=== PATIENT | female | born 1965 | race Caucasian/White ===

== ENCOUNTER 2016-11-06 17:33 | Emergency (ER) | payer MEDICAID, OTHER ==
[2016-11-06 18:20] VITALS: BP 157/99
--- NOTE | 2016-11-06 19:08 | EDM.PDOC ---
ED HPI GENERAL MEDICAL PROBLEM - General Chief Complaint: General Stated Complaint: feeling sick Time Seen by Provider: 11/06/16 19:03 Source of Information: Reports: Patient History Limitations: Reports: No Limitations - History of Present Illness INITIAL COMMENTS - FREE TEXT/NARRATIVE: fell onto low back and been having problem walking about especially it has exac ' her fibromyalgia. was on dilaudid in [place] and just got here week ago and pending medicaid. explained to Pt re' [place] law on pain meds. Pt understood. Generalized Pain Score (Numeric/FACES): 6 - Related Data Allergies Allergy/AdvReac Type Severity Reaction Status Date / Time acetaminophen Allergy Anxiety Verified 11/06/16 18:16 [From Darvocet-N] adhesive tape Allergy Rash Verified 11/06/16 18:16 latex Allergy Rash Verified 11/06/16 18:15 meperidine [From Demerol] Allergy Rash Verified 11/06/16 18:16 naproxen Allergy Numbness Verified 11/06/16 18:17 propoxyphene Allergy Anxiety Verified 11/06/16 18:16 [From Darvocet-N] tramadol Allergy Vomiting Verified 11/06/16 18:17 Home Meds: Home Meds . 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, Other (See Below) Other OB/BYN History: and hysterectomy Musculoskeletal History: Reports: Back Pain, Chronic, Fibromyalgia, Neck Pain, Chronic Neurological History: Reports: None Psychiatric History: Reports: None Endocrine/Metabolic History: Reports: None Hematologic History: Reports: None Immunologic History: Reports: None Oncologic (Cancer) History: Reports: None Dermatologic History: Reports: Eczema, Other (See Below) Other Dermatologic History: sensitive to latex - Infectious Disease History Infectious Disease History: Reports: Hepatitis C - Past Surgical History Head Surgeries/Procedures: Reports: None Social & Family History - Family History Family Medical History: Noncontributory - Tobacco Use Smoking Status *Q: Current Every Day Smoker Years of Tobacco use: 30 Packs/Tins Daily: 0.5 Used Tobacco, but Quit: No Second Hand Smoke Exposure: No - Caffeine Use Caffeine Use: Reports: Soda - Recreational Drug Use Recreational Drug Use: No ED ROS GENERAL - Review of Systems Review Of Systems: ROS reveals no pertinent complaints other than HPI. ED EXAM, GENERAL - Physical Exam Exam: See Below Exam Limited By: No Limitations General Appearance: Alert, WD/WN, Mild Distress, Other (low back pain, tearful) Eye Exam: Bilateral Eye: PERRL (pupils ER @ 4mm) Ears: Hearing Grossly Normal Throat/Mouth: Normal Voice, No Airway Compromise Head: Atraumatic Neck: Non-Tender, Full Range of Motion Respiratory/Chest: No Respiratory Distress Cardiovascular: Regular Rate, Rhythm GI/Abdominal: Soft, Non-Tender Back Exam: Muscle Spasm, Paraspinal Tenderness, Other (L1-S1 region with mild radiculitis, gait limited to pain, no gross ecchymosis) Extremities: Normal Inspection Neurological: Alert, Oriented, Normal Cognition, Normal Reflexes, No Motor/ Sensory Deficits Psychiatric: Tearful Skin Exam: Warm, Dry Lymphatic: No Adenopathy Course - Vital Signs Last Recorded V/S: Last Vital Signs Temp 36.4 C 11/06/16 18:18 Pulse 104 H 11/06/16 18:18 Resp 20 11/06/16 18:18 BP 157/99 H 11/06/16 18:19 Pulse Ox 100 11/06/16 18:18 - Orders/Labs/Meds Meds: Medications Discontinued Medications Generic Name Dose Route Start Last Admin Trade Name Alvaradoq PRN Reason Stop Dose Admin Hydromorphone HCl 1 mg 11/06/16 19:41 11/06/16 19:51 Dilaudid IM 11/06/16 19:42 1 mg ONETIME ONE Administration Promethazine HCl 25 mg 11/06/16 19:41 11/06/16 19:51 Phenergan IM 11/06/16 19:42 25 mg ONETIME ONE Administration - Re-Assessments/Exams Free Text/Narrative Re-Assessment/Exam: 11/06/16 19:46 x-rays discussed with Pt. Departure - Departure Time of Disposition: 20:05 Disposition: Home, Self-Care 01 Condition: Good Clinical Impression: Lumbar radicular syndrome, Fibromyalgia syndrome Lumbar contusion Qualifiers: Encounter type: initial encounter Qualified Code(s): S30.0XXA - Contusion of lower back and pelvis, initial encounter - Discharge Information Instructions: Back Pain, Adult, [id number] Forms: ED Department Discharge Additional Instructions: 1) rest and avoid bending lifting straining 2) try heat or ice to sore areas 3) follow up at clinic rx given; flexeril 10mg tid prn x 12
[2016-11-06] MEDS ORDERED: HYDROmorphone 1 MG/ML Syringe IM ONE (19:41)
[2016-11-06] MEDS ORDERED: Promethazine 25 MG/ML SDV IM ONE (19:41)
== END 2016-11-06 20:10 | disposition home or self-care (01) ==
LOC: DL.ED 17:33
DX: S30.0XXA Contusion of lower back and pelvis, initial encounter (principal); M54.16 Radiculopathy, lumbar region; M79.7 Fibromyalgia; F17.210 Nicotine dependence, cigarettes, uncomplicated; Z90.710 Acquired absence of both cervix and uterus; Z91.09 Other allergy status, other than to drugs and biological substances; Z91.040 Latex allergy status; Z88.5 Allergy status to narcotic agent; Z88.8 Allergy status to other drugs, medicaments and biological substances; W19.XXXA Unspecified fall, initial encounter
CPT/HCPCS: 72100; 96372; 99283; J1170; J2550; 99284

== ENCOUNTER 2016-11-11 17:46 | Emergency (ER) | payer MEDICAID, OTHER ==
--- NOTE | 2016-11-11 19:22 | EDM.PDOC ---
ED HPI GENERAL MEDICAL PROBLEM - General Chief Complaint: ENT Problem Stated Complaint: TOOTH PAIN NO PHONE Time Seen by Provider: 11/11/16 19:24 Source of Information: Reports: Patient History Limitations: Reports: No Limitations - History of Present Illness INITIAL COMMENTS - FREE TEXT/NARRATIVE: C/o severe tooth pain on upper and lower right posterior molars starting Wednesday worse today, Dentist appointment on Wednesday. Alternating tylenol and ibuprofen with anbesol without relief. 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, Other (See Below) Other OB/BYN History: and hysterectomy Musculoskeletal History: Reports: Back Pain, Chronic, Fibromyalgia, Neck Pain, Chronic Neurological History: Reports: None Psychiatric History: Reports: None Endocrine/Metabolic History: Reports: None Hematologic History: Reports: None Immunologic History: Reports: None Oncologic (Cancer) History: Reports: None Dermatologic History: Reports: Eczema, Other (See Below) Other Dermatologic History: sensitive to latex - Infectious Disease History Infectious Disease History: Reports: Hepatitis C - Past Surgical History Head Surgeries/Procedures: Reports: None Social & Family History - Family History Family Medical History: Noncontributory - Tobacco Use Smoking Status *Q: Current Every Day Smoker Years of Tobacco use: 30 Packs/Tins Daily: 0.5 Used Tobacco, but Quit: No Second Hand Smoke Exposure: No - Caffeine Use Caffeine Use: Reports: Soda - Recreational Drug Use Recreational Drug Use: No ED ROS ENT - Review of Systems Review Of Systems: See Below Constitutional: Denies: Fever, Chills HEENT: Reports: Dental Pain Respiratory: Reports: Shortness of Breath Cardiovascular: Reports: No Symptoms ED EXAM, ENT - Physical Exam Exam: See Below Exam Limited By: No Limitations General Appearance: Alert, Moderate Distress, Thin Eye Exam: Bilateral Eye: EOMI Ears: Normal External Exam Nose: Normal Inspection Mouth/Throat: Dental Abcess (Posterior right upper and lower molar, extensive old decay, minimal gum swelling, no lymphadnopathy), Dental Pain, Dental Tenderness Head: Atraumatic, Normocephalic Respiratory/Chest: No Respiratory Distress, Lungs Clear Cardiovascular: Normal Peripheral Pulses, Regular Rate, Rhythm Neurological: Alert Psychiatric: Anxious, Tearful Skin: Warm, Dry, Intact, Normal Color Course - Vital Signs Last Recorded V/S: Last Vital Signs Temp 98.2 F 11/11/16 18:14 Pulse 79 11/11/16 18:14 Resp 16 11/11/16 18:14 BP 187/97 H 11/11/16 18:14 Pulse Ox 100 11/11/16 18:14 - Re-Assessments/Exams Free Text/Narrative Re-Assessment/Exam: 11/11/16 2235 Patient called to ED inquiring if we would fill her RX as unable to get to pharmacy before it closed. Patient discharged at 1935 and pharmacy open until 1999. Patient informed she would could fill Rx in am. Departure - Departure Time of Disposition: 19:35 Disposition: Home, Self-Care 01 Condition: Good Clinical Impression: Pain due to dental caries - Discharge Information Instructions: Dental Abscess, [id number] Forms: ED Department Discharge Additional Instructions: amoxicillin 875mg one twice daily for one week #14 hydrocodone 10/325 one now and one in 6 hours at bed time #2 chew opposite side room temp liquids follow up with dentist
== END 2016-11-11 19:43 | disposition home or self-care (01) ==
LOC: DL.ED 17:46
CPT/HCPCS: 99282; 99283

== ENCOUNTER 2016-11-26 19:06 | Emergency (ER) | payer MEDICAID, OTHER ==
[2016-11-26 20:00] VITALS: BP 131/88
== END 2016-11-26 21:14 | disposition left against medical advice (07) ==
LOC: DL.ED 19:06
DX: Z53.21 Procedure and treatment not carried out due to patient leaving prior to being seen by health care provider (principal)

== ENCOUNTER 2016-12-06 11:28 | Emergency (ER) | payer MEDICAID, OTHER ==
[2016-12-06 11:45] VITALS: BP 135/93
[2016-12-06] MEDS ORDERED: Albuterol/Ipratropium 3.0-0.5 MG/3 ML Neb Soln NEB ONE (12:17)
--- NOTE | 2016-12-06 12:20 | EDM.PDOC ---
ED HPI GENERAL MEDICAL PROBLEM - General Chief Complaint: Respiratory Problem Stated Complaint: COLD Time Seen by Provider: 12/06/16 12:15 Source of Information: Reports: Patient History Limitations: Reports: No Limitations - History of Present Illness INITIAL COMMENTS - FREE TEXT/NARRATIVE: 51 yo white female c/o right side chest congestion X 3 months. Patient smoke cigs 1.5 packs / day Onset Date: 08/24/16 Onset Time: 12:00 Duration: Week(s): Location: Reports: Chest Severity: Moderate Improves with: Reports: None Worsens with: Reports: None Associated Symptoms: Reports: Cough Right Thoracic Pain Score (Numeric/FACES): 1 - Related Data Allergies Allergy/AdvReac Type Severity Reaction Status Date / Time acetaminophen Allergy Anxiety Verified 12/06/16 11:40 [From Darvocet-N] adhesive tape Allergy Rash Verified 12/06/16 11:40 latex Allergy Rash Verified 12/06/16 11:40 meperidine [From Demerol] Allergy Rash Verified 12/06/16 11:40 naproxen Allergy Numbness Verified 12/06/16 11:40 propoxyphene Allergy Anxiety Verified 12/06/16 11:40 [From Darvocet-N] tramadol Allergy Vomiting Verified 12/06/16 11:40 Home Meds: Home Meds . 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, Other (See Below) Other OB/BYN History: and hysterectomy Musculoskeletal History: Reports: Back Pain, Chronic, Fibromyalgia, Neck Pain, Chronic Neurological History: Reports: None Psychiatric History: Reports: None Endocrine/Metabolic History: Reports: None Hematologic History: Reports: None Immunologic History: Reports: None Oncologic (Cancer) History: Reports: None Dermatologic History: Reports: Eczema, Other (See Below) Other Dermatologic History: sensitive to latex - Infectious Disease History Infectious Disease History: Reports: Hepatitis C - Past Surgical History Head Surgeries/Procedures: Reports: None Social & Family History - Family History Family Medical History: Noncontributory - Tobacco Use Smoking Status *Q: Current Every Day Smoker Years of Tobacco use: 41 Packs/Tins Daily: 1 Used Tobacco, but Quit: No Second Hand Smoke Exposure: Yes - Caffeine Use Caffeine Use: Reports: Soda - Recreational Drug Use Recreational Drug Use: No ED ROS GENERAL - Review of Systems Review Of Systems: See Below Constitutional: Reports: No Symptoms HEENT: Reports: No Symptoms Respiratory: Reports: Cough Cardiovascular: Reports: No Symptoms Endocrine: Reports: No Symptoms GI/Abdominal: Reports: No Symptoms : Reports: No Symptoms Musculoskeletal: Reports: No Symptoms Skin: Reports: No Symptoms Neurological: Reports: No Symptoms Psychiatric: Reports: No Symptoms Hematologic/Lymphatic: Reports: No Symptoms Immunologic: Reports: No Symptoms ED EXAM, GENERAL - Physical Exam Exam: See Below Exam Limited By: No Limitations General Appearance: Alert, WD/WN, No Apparent Distress Eye Exam: Bilateral Eye: PERRL Ears: Normal External Exam Ear Exam: Bilateral Ear: Auricle Normal Nose: Normal Inspection Throat/Mouth: Normal Inspection Head: Atraumatic Neck: Normal Inspection Respiratory/Chest: No Respiratory Distress, Lungs Clear, No Accessory Muscle Use Cardiovascular: Normal Peripheral Pulses, Regular Rate, Rhythm GI/Abdominal: Normal Bowel Sounds Back Exam: Normal Inspection Extremities: Normal Inspection Neurological: Alert, Oriented, CN II-XII Intact Psychiatric: Normal Affect Skin Exam: Warm, Intact Lymphatic: No Adenopathy Course - Vital Signs Last Recorded V/S: Last Vital Signs Temp 37.3 C 12/06/16 11:42 Pulse 74 12/06/16 12:17 Resp 16 12/06/16 11:42 BP 135/93 H 12/06/16 11:42 Pulse Ox 92 L 12/06/16 12:17 - Orders/Labs/Meds Orders: Active Orders 24 hr Category Date Time Status RT Aerosol Therapy [RC] ASDIRECTED Care 12/06/16 12:17 Active Chest 2V [CR] Urgent Exams 12/06/16 12:16 Ordered Meds: Medications Discontinued Medications Generic Name Dose Route Start Last Admin Trade Name Freq PRN Reason Stop Dose Admin Albuterol/Ipratropium 3 ml 12/06/16 12:17 12/06/16 12:22 Duoneb 3.0-0.5 Mg/3 Ml NEB 12/06/16 12:18 3 ml ONETIME ONE Administration - Radiology Interpretation Free Text/Narrative:: Chest X-ray Negative for pneumonia Departure - Departure Time of Disposition: 13:06 Disposition: Home, Self-Care 01 Condition: Fair Clinical Impression: Bronchitis due to fumes and vapors, Tobacco abuse - Discharge Information Instructions: Smoking Cessation, Tips for Success, [id number] Forms: ED Department Discharge Additional Instructions: Stop Smoking Increase intake of Fluids ( Juice /Water) Take Medications as prescribed F/U w/ PCP - My Orders Last 24 Hours: My Active Orders 12/06/16 12:16 Chest 2V [CR] Urgent 12/06/16 12:17 RT Aerosol Therapy [RC] ASDIRECTED - Assessment/Plan Last 24 Hours: My Active Orders 12/06/16 12:16 Chest 2V [CR] Urgent 12/06/16 12:17 RT Aerosol Therapy [RC] ASDIRECTED
== END 2016-12-06 13:18 | disposition home or self-care (01) ==
LOC: DL.ED 11:28
DX: J68.0 Bronchitis and pneumonitis due to chemicals, gases, fumes and vapors (principal); F17.210 Nicotine dependence, cigarettes, uncomplicated; Z90.710 Acquired absence of both cervix and uterus; Z88.6 Allergy status to analgesic agent; Z88.8 Allergy status to other drugs, medicaments and biological substances; Z91.040 Latex allergy status
CPT/HCPCS: 71020; 94640; 99284

== ENCOUNTER 2017-04-03 18:49 | Emergency (ER) | payer MEDICAID, OTHER ==
[2017-04-03 19:22] VITALS: BP 152/92
--- NOTE | 2017-04-03 19:50 | EDM.PDOC ---
ED HPI GENERAL MEDICAL PROBLEM - General Chief Complaint: Trauma Stated Complaint: LEFT SIDE HIP/KNEE INJURY, [id number] Time Seen by Provider: 04/03/17 19:30 Source of Information: Reports: Patient History Limitations: Reports: No Limitations - History of Present Illness INITIAL COMMENTS - FREE TEXT/NARRATIVE: Reports falling in parking lot when slipped on icy patch fell on left side and hit curb with left knee. 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: Other (see below) Other Treatments EGG BUYER: none Left Elbow Pain Score (Numeric/FACES): 6 - Related Data Allergies Allergy/AdvReac Type Severity Reaction Status Date / Time adhesive tape Allergy Rash Verified 04/03/17 19:23 latex Allergy Rash Verified 04/03/17 19:23 meperidine [From Demerol] Allergy Rash Verified 04/03/17 19:23 naproxen Allergy Numbness Verified 04/03/17 19:23 propoxyphene Allergy Anxiety Verified 04/03/17 19:23 [From Darvocet-N] tramadol Allergy Vomiting Verified 04/03/17 19:23 acetaminophen AdvReac Anxiety Verified 04/03/17 19:24 [From Darvocet-N] secobarbital [From Seconal] AdvReac Excitabilit Verified 04/03/17 19:24 y Home Meds: Home Meds Diclofenac Sodium [Voltaren] 04/03/17 [History] Past Medical History HEENT History: Reports: Other (See Below) Other HEENT History: dental caries Cardiovascular History: Reports: None Respiratory History: Reports: COPD Gastrointestinal History: Reports: Other (See Below) Other Gastrointestinal History: pt has emesis constantly,hernia Genitourinary History: Reports: Other (See Below) Other Genitourinary History: one kidney 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, Other (See Below) Other OB/BYN History: and hysterectomy Musculoskeletal History: Reports: Back Pain, Chronic, Fibromyalgia, Neck Pain, Chronic, Other (See Below) Other Musculoskeletal History: scoliosis of neck causing chronic hip pain Neurological History: Reports: None Psychiatric History: Reports: None Endocrine/Metabolic History: Reports: None Hematologic History: Reports: None Immunologic History: Reports: None Oncologic (Cancer) History: Reports: None Dermatologic History: Reports: Eczema, Other (See Below) Other Dermatologic History: sensitive to latex - Infectious Disease History Infectious Disease History: Reports: Hepatitis C - Past Surgical History Head Surgeries/Procedures: Reports: None Social & Family History - Family History Family Medical History: Noncontributory - Tobacco Use Smoking Status *Q: Current Every Day Smoker Years of Tobacco use: 42 Packs/Tins Daily: 1 Used Tobacco, but Quit: No Second Hand Smoke Exposure: Yes - Caffeine Use Caffeine Use: Reports: Soda - Recreational Drug Use Recreational Drug Use: No Review of Systems - Review of Systems Review Of Systems: See Below Constitutional: Reports: No Symptoms Eyes: Reports: No Symptoms Ears: Reports: No Symptoms Nose: Reports: No Symptoms Mouth/Throat: Reports: No Symptoms Respiratory: Reports: No Symptoms Cardiovascular: Reports: No Symptoms GI/Abdominal: Reports: No Symptoms Musculoskeletal: Reports: Arm Pain (left wrist), Leg Pain (left). Denies: Neck Pain, Shoulder Pain, Back Pain Skin: Reports: No Symptoms Neurological: Reports: No Symptoms Psychiatric: Reports: No Symptoms ED EXAM, GENERAL - Physical Exam Exam: See Below Exam Limited By: No Limitations General Appearance: Alert, Mild Distress ( moves slower but easily when not observing staff present, movements and complaints more dramatic with staff) Eye Exam: Bilateral Eye: EOMI, PERRL Ears: Normal External Exam, Normal TMs Nose: Normal Inspection Throat/Mouth: Normal Inspection Head: Atraumatic, Normocephalic Neck: Normal Inspection Respiratory/Chest: No Respiratory Distress, Lungs Clear Cardiovascular: Normal Peripheral Pulses, Regular Rate, Rhythm GI/Abdominal: Normal Bowel Sounds, Soft Back Exam: Normal Inspection Extremities: Other (5mm abasion lateral left wrist full ROM tenderwithpalpation to wrist, pain with palpation to left hip and mid lateral thigh, no bruising or deformity, left knee swollen anteriorly tender, lower leg normal exam) Neurological: Alert, Oriented, Normal Cognition Skin Exam: Warm, Dry, Normal Color Course - Vital Signs Last Recorded V/S: Last Vital Signs Temp 98.6 F 04/03/17 19:19 Pulse 108 H 04/03/17 19:19 Resp 20 04/03/17 19:19 BP 152/92 H 04/03/17 19:19 Pulse Ox 97 04/03/17 19:19 - Radiology Interpretation Free Text/Narrative:: xray, hip, femur, katharina and wrist negative Departure - Departure Time of Disposition: 20:58 Disposition: Home, Self-Care 01 Condition: Good Clinical Impression: Multiple contusions Fall Qualifiers: Encounter type: initial encounter Qualified Code(s): W19.XXXA - Unspecified fall, initial encounter Left knee pain Qualifiers: Chronicity: acute Qualified Code(s): M25.562 - Pain in left knee - Discharge Information Instructions: Contusion, [id number] Forms: ED Department Discharge Additional Instructions: himanshu wrap to knee to minimize swelling over knee cap ice to bruised area, weight bearing as tolerated, may use crutches for support tylenol for discomfort may use ibuproofen 600mg every 6 hours as needed if able to tolerate medication
== END 2017-04-03 21:05 | disposition home or self-care (01) ==
LOC: DL.ED 18:49
DX: S60.812A Abrasion of left wrist, initial encounter (principal); T14.8XXA Other injury of unspecified body region, initial encounter; F17.210 Nicotine dependence, cigarettes, uncomplicated; Z91.040 Latex allergy status; Z88.5 Allergy status to narcotic agent; Z88.8 Allergy status to other drugs, medicaments and biological substances; W01.0XXA Fall on same level from slipping, tripping and stumbling without subsequent striking against object, initial encounter
CPT/HCPCS: 73100-LT; 73562-LT; 99283

== ENCOUNTER 2017-04-04 12:09 | Emergency (ER) | payer MEDICAID, OTHER ==
[2017-04-04 12:24] VITALS: BP 161/93
== END 2017-04-04 13:10 | disposition left against medical advice (07) ==
LOC: DL.ED 12:09
DX: Z53.21 Procedure and treatment not carried out due to patient leaving prior to being seen by health care provider (principal)